=== PATIENT | male | born 1945 | race Caucasian/White ===

== ENCOUNTER → 2016-04-08 | Outpatient (REF) | LOC: ZLAB.WCH 14:51 | DX: Z01.89 Encounter for other specified special examinations (principal) ==

== ENCOUNTER → 2016-07-13 | Outpatient (REF) | LOC: ZLAB.WCH 12:13 | DX: Z01.89 Encounter for other specified special examinations (principal) ==

== ENCOUNTER → 2016-10-12 | Outpatient (REF) | LOC: ZLAB.WCH 18:42 | DX: Z01.89 Encounter for other specified special examinations (principal) ==

== ENCOUNTER → 2017-01-12 | Outpatient (REF) | LOC: ZLAB.WCH 14:34 | DX: Z01.89 Encounter for other specified special examinations (principal) ==

== ENCOUNTER → 2017-04-13 | Outpatient (REF) | LOC: ZLAB.WCH 18:02 | DX: Z01.89 Encounter for other specified special examinations (principal) ==

== ENCOUNTER → 2017-07-20 | Outpatient (REF) | LOC: ZLAB.WCH 14:39 | DX: Z01.89 Encounter for other specified special examinations (principal) ==

== ENCOUNTER → 2017-10-12 | Outpatient (REF) | LOC: ZLAB.WCH 16:05 | DX: Z01.89 Encounter for other specified special examinations (principal) | CPT/HCPCS: G0103 ==

== ENCOUNTER → 2018-01-05 | Outpatient (REF) | LOC: ZLAB.WCH 16:46 | DX: Z01.89 Encounter for other specified special examinations (principal) ==

== ENCOUNTER → 2018-03-30 | Outpatient (REF) | LOC: ZLAB.WCH 15:54 | DX: Z01.89 Encounter for other specified special examinations (principal) ==

== ENCOUNTER → 2018-06-20 | Outpatient (REF) ==
[2018-06-20 22:22] LABS: HEMOGLOBIN 14.7 g/dl (13.5-18.0)
== END ==
LOC: ZLAB.WCH 16:06
PROVIDERS: Family Medicine
DX: Z01.89 Encounter for other specified special examinations (principal)

== ENCOUNTER 2022-04-24 05:19 | Day surgery (SDC) | payer BC ==
[~2022-04-24] VITALS: Ht 182.9 cm; Wt 112.7 kg
[2022-04-24] VITALS (13 sets, daily range): BP systolic 117–159; BP diastolic 52–758; PULSE 65–95; TEMP 97.8–98.4
[2022-04-24 06:17] LABS: BASO # 0.1 K/mm3 (0.0-0.2); BASO % 1.1 % (0.0-2.0); EOS # 0.6 K/mm3 (0.0-0.7); EOS % 5.8 % (0.0-4.0); GRAN # 5.1 K/mm3 (1.4-6.5); GRAN % 49.9 % (42.2-75.2); HEMATOCRIT 44.5 % (42.0-52.0); HEMOGLOBIN 14.6 g/dl (13.5-18.0); LYMPH # 3.4 K/mm3 (1.2-3.4); LYMPH % 32.9 % (20.0-51.0); MEAN CELL VOLUME 91 fl (80.0-100.0); MEAN CORPUSCULAR HEMOGLOBIN 30 pg (27-31); MEAN CORPUSCULAR HGB CONC 33 g/dl (33.0-37.0); MEAN PLATELET VOLUME 9.9 fl (7.4-10.4); MONO % 9.9 % (1.7-9.3); PLATELET COUNT 232 K/mm3 (130-400); RED BLOOD COUNT 4.89 M/mm3 (4.20-5.60); REDCELL DISTRIBUTION WIDTH-CV 13.2 % (11.5-14.5)
--- NOTE | 2022-04-24 06:22 | NUR ---
The patient was taken over to the recovery room to have a pre-op nerve block placed for his scheduled surgery. The patient's chart was sent with him and he will be taken back to surgery from the recovery room. The patient's family was escorted back to the waititng room to receive updates during surgery.
[2022-04-24] MEDS ORDERED: GLUCOPHAGE1000 MG PO (06:34)
[2022-04-24] MEDS ORDERED: TOPROL XL100 MG PO (06:34)
[2022-04-24 06:35] LABS: CALCIUM 9.7 mg/dL (8.4-10.2); CREATININE, serum 1.23 mg/dL (0.72-1.25); POTASSIUM 4.8 mmol/L (3.5-4.5)
[2022-04-24] MEDS ORDERED: HYGROTON 2525 MG/TAB PO (06:35)
[2022-04-24] MEDS ORDERED: LIPITOR 80MG80 MG PO (06:35)
[2022-04-24] MEDS ORDERED: VASOTEC20 MG PO (06:36)
[2022-04-24] MEDS ORDERED: PROSCAR 5MG5 MG PO (06:36)
[2022-04-24] MEDS ORDERED: CELEXA 20MG20 MG/TAB PO (06:36)
[2022-04-24] MEDS ORDERED: JANUVIA 100MG100 MG PO (06:37)
[2022-04-24] MEDS ORDERED: ZETIA 10MG TAB10 MG PO (06:38)
[2022-04-24] MEDS ORDERED: FLOMAX 0.40.4 MG/CAP PO (06:38)
[2022-04-24] MEDS ORDERED: NOVOLOG FLEX100 U/ML SQ (06:39)
[2022-04-24] MEDS ORDERED: LEVEMIR FLEX100 U/ML SQ (06:40)
[2022-04-24] MEDS ORDERED: ASPIRIN 81M81 MG/TA2 PO (06:40)
--- NOTE | 2022-04-24 10:47 | NUR ---
Patient arrived to the unit from PACU via bed. Patient alert , mesha wrap dressing to left lower extremity dry and intact. Patient has no sensation to LLE yet. VSS , patient oriented to room and the use of call bustillo. Family members at the bedside.
--- NOTE | 2022-04-24 15:13 | NUR ---
Patient c/o pain at LLE and rated pain level 7/10. Dilaudid adminstered. Family at the bedside. Call bustillo within reach.
--- NOTE | 2022-04-24 18:21 | NUR ---
Patient denies needs at this time. Ice apply to the left lower extremities.
[2022-04-25 03:52] VITALS: BP 153/77; PULSE 90; TEMP 99.1
[2022-04-25 06:57] LABS: HEMOGLOBIN 12.1 g/dl (13.5-18.0)
[2022-04-25 08:01] VITALS: BP 174/87; PULSE 106; TEMP 99.5
--- NOTE | 2022-04-25 10:10 | NUR ---
PT INDEPENDENT IN ROOM. DRESSING TO LEFT KNEE CDI. PAIN CONTROLLED WITH PO MEDS. PT EATING AND DRINKING NO N/V. DISCHARGE ORDERS RECIEVED, PLAN ON DISCHARGE AFTER THERAPY WORKS WITH PT
--- NOTE | 2022-04-25 10:50 | NUR ---
PT UP INDEPENDENTLY IN ROOM. AQUACEL DRESSING TO LEFT KNEE CDI. PT CURRENTLY WORKING WITH PHYSICAL THEAPY.
--- NOTE | 2022-04-25 11:36 | NUR ---
PT LEFT BEFORE RECIEVING DISCHARGE INSTRUCTIONS.
== END 2022-04-25 11:37 | disposition home or self-care (01) ==
LOC: SDCO 05:19 → SURG 09:54 → SDCO 04-25 11:37
PROVIDERS: Nurse Anesthetist, Certified Registered; Orthopaedic Surgery Sports Medicine
DX: M17.12 Unilateral primary osteoarthritis, left knee (principal); G89.18 Other acute postprocedural pain
CPT/HCPCS: OP; A9284; C1713; C1776; J0690; J1100; J1170; J1815; J2250; J2405; J2704; J3010; J7120